=== PATIENT | male | born 1970 | race Caucasian/White ===

== ENCOUNTER 2024-08-12 02:12 | Day surgery (SDC) | payer OTHER, SELFPAY ==
[2024-08-02 10:21] VITALS: BMI 28.5
--- OUTSIDE RECORDS SUMMARY | 2024-08-12 02:20 | XMS_ITS | Data Portability ---
Author Organization [facility] Address [address] [place] [address] Care Team Providers Care Credit Support Counselor Name Role Phone WANDA CARROLL Primary Care Provider Assessment Encounter Date Assessment Date Assessment LastModified by Organization Details LastModified Time 04/29/2024 04/29/2024 CBC CMP lipid PSA. Wellbutrin SR 150 b.i.d.. Smokeless tobacco in 2 weeks after starting losartan 25 mg daily colonoscopy follow up 6 weeks obtain records from the [facility] cardiology group. He is actually seeing his dentist in a week or 2 [email or web address] Not available 04/29/2024 23:00:35 06/10/2024 06/10/2024 continue current therapy obtain colonoscopies follow up in 6 months [email or web address] Not available 07/11/2024 18:21:30 Plan of Treatment Reminders Order Date Submit Date Provider Last Modified By Organization Details Last Modified Time Details Appointments ANY 15 2024 09:30A Cyrus Carroll MD Not available Not available Not available Lab PSA, serum or plasm a 2024 025 [facility], [address] [place], [address], 04/30/2024 11:03:24 lipid panel , serum 2024 025 [facility], [address] [place], [address], 04/30/2024 11:03:23 CMP, serum or plasm a 2024 025 [facility], [address] [place], [address], 04/30/2024 11:03:23 CBC w/ auto diff 2024 025 [email or web address], [address] , [place], [address], 04/30/2024 11:03:23 Referral None recor ded. Procedures colon oscop y scree frida (PROC ) 2024 025 sally Hebert [facility] Gastroenterology Dept, [address] [facility] , [address], [place], [address], 08/11/2024 12:48:40 Surgeries None recor ded. Imaging None recor ded. Medication Orders Wellb utrin SR 150 mg table t, 12 hr susta ined- relea se 2024 025 [id number], [address], [place], [place], [id number], 05/05/2024 11:58:53 losar anderson 25 mg table t 2024 025 [id number], [address], [place], [place], [id number], 05/05/2024 11:58:37 Patient TargetsNo targets recorded. Patient Instructions Encounter Date Encounter Id Patient Instructions Last Modified By Organization Details Last Modified Time 04/29/2024 [id number] A healthy lifestyle: care instructions [email or web address] Not available 04/29/2024 14:40:35 Reason for Referral None Reported. Results Created Date Observation Date Name Description Value Unit Range Abnormal Flag Note LastModifiedBy Organization Detail LastModifiedTime 06/17/1905/14/2024 CT, coron valentino calci um score No observ ation record ed. [facility] [address], [place], [address], 06/16/2024 09:26:31 Result Notes None recorded. Problems Name Problem SNOMED Code Status Onset Date Resolution Date Notes Provider Name and Address Organization Details Recorded Time Essential hypertension 63402209 Active 2024 Mana Mann MA null, [facility] 5 11:27:34 Hyperlipidemia 50434627 Active 2024 Mana Mann MA null, [facility] 5 12:19:57 Body mass index 25-29 - overweight 445352622 Active 2024 Mana Mann MA null, [facility] 5 12:39:06 Problem Notes None recorded. Procedures Surgical History Date Name Laterality Status Provider Name and Address Organization Details Recorded Time Appendectomy completed Wendy Tony MA [facility] 06/10/2024 11:11:11 Imaging Results Imaging Date Name Status [facility] Details LastModified Time 05/14/2024 CT, coronary calcium score completed [facility] [address], [place], [address], 06/16/2024 09:26:31 Procedure Notes None recorded. Medical Equipment None Reported. Allergies No known drug allergies Medications Name Sig Start Date Stop Date Status Note LastModified by Organization Details LastModified Time atorvastatin 10 mg tablet TAKE 1 TABLET BY MOUTH EVERY DAY 2024 active Not Available Not Available Not Avai lable Wellbutrin SR 150 mg tablet, 12 hr sustained-re lease Take 1 tablet(s ) twice a day by oral route. 2024 active Not Available Not Available Not Avai lable tamsulosin 0.4 mg capsule TAKE 1 CAPSULE BY MOUTH EVERY DAY active Not Available Not Available No t Available losartan 25 mg tablet Take 1 tablet every day by oral route. 2024 active Not Available Not Available Not Avai lable levofloxacin 500 mg tablet TAKE 1 TABLET BY MOUTH EVERY DAY 05/12 completed Not Available Not Available Not Available Vitals Date Recorded Body height Body mass index (BMI) Body weight Heart rate Oxygen saturation Oxygen saturation in Arterial blood by Pulse oximetry Systolic blood pressure Diastolic blood pressure Provider Name and Address Organization Details Last Updated DateTime 195.58 cm 29.2 kg/m2 505551. 16 g 72 /min 99 % 99 % 150 mm[Hg] 90 mm[Hg] Ximena Mcginnis [place] - [facility] 5 10:36:31 Date Recorded Body height Body mass index (BMI) Body weight Heart rate Oxygen saturation Oxygen saturation in Arterial blood by Pulse oximetry Systolic blood pressure Diastolic blood pressure Provider Name and Address Organization Details Last Updated DateTime 5 195.58 cm 28.9 kg/m2 093529. 54 g 93 /min 99 % 99 % 138 mm[Hg] 80 mm[Hg] Wendy Tony MA [facility] 5 11:13:31 Social History Question Answer Notes LastModified by Organizat ion Details LastModified Time Tobacco Smoking Status Never Smoker Ximena Mcginnis MA [facility], [facility] 04/29/2024 10:31:51 Do You Have An Advance Directive? Yes Information n ot available 04/29/2024 What Is Your Level Of Alcohol Consumption? None Information not available 06/10/2024 Are You Blind Or Do You Have Difficulty Seeing? No Information n ot available 04/29/2024 What Is Your Level Of Caffeine Consumption? None Information not available 04/29/2024 In The 14 Days Before Symptom Onset, Have You Had Close Contact With A Laboratory-confirm ed COVID-19 While That Case Was Ill? No Information n ot available 04/29/2024 In The 14 Days Before Symptom Onset, Have You Had Close Contact With A Person Who Is Under Investigation For COVID-19 While That Person Was Ill? No Information not available 04/29/2024 Have You Been To An Area Known To Be High Risk For COVID-19? No Information not available 04/29/2024 Are You Currently Employed? Yes Information not available 04/29/2024 Are You Deaf Or Do You Have Serious Difficulty Hearing? No Information not available 04/29/2024 What Type Of Diet Are You Following? 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 No Information not available 04/29/2024 What Was The Date Of Your Most Recent Tobacco Screening? 06/10/2024 Information not available 06/10/2024 What Is Your Relationship Status? Domestic Partner Information not available 04/29/2024 Do You Use Your Seat Belt Or Car Seat Routinely? Yes Information not available 04/29/2024 Do You Have Smoke And Carbon Monoxide Detectors In Your Home? Yes Information not available 04/29/2024 Do You Or Have You Ever Used Smokeless Tobacco? Currently Chews Tobacco Information not available 06/10/2024 Do You Feel Stressed (tense, Restless, Nervous, Or Anxious, Or Unable To Sleep At Night)? EG1401-2 Information not available 04/29/2024 Do You Use Any Illicit Or Recreational Drugs? No Information not available 04/29/2024 Do You Use Sunscreen Routinely? Yes Information not available 04/29/2024 Has Tobacco Cessation Counseling Been Provided? Yes Information not available 06/10/2024 On What Date Was Tobacco Cessation Counseling Provided? 06/10/2024 Information not available 06/10/2024 Do You Or Have You Ever Used Any Other Forms Of Tobacco Or Nicotine? Yes Information not available 06/10/2024 Sex: Male Functional Status Question Answer Note LastModified by Organization D etails LastModified Time Are you able to care for yourself? Yes Information n ot available 04/29/2024 What is your exercise level? None Information not available 04/29/2024 Mental Status None recorded. Family History Relationship Description Onset Age of this Age Resolved Age Notes LastModified by Organization Details LastModified Time Father Harmful pattern of use of alcohol mebyma Not available 2024 10:31:00 Father Cerebrovascu lar disease mebyma Not available 04/14 10:31:09 Father Heart disease mebyma Not available 2024 10:31:17 Father Hypertensive disorder mebyma Not available 2024 10:31:23 Father Hypercholest erolemia mebyma Not available 2024 10:31:27 Father Myocardial infarction mebyma Not available 04/29 10:31:35 Medical History Condition Response Anxiety Disorder Y High Blood Pressure Y High Cholesterol Y Past Encounters Encounter ID Performer Location Encounter Start Date Encounter Closed Date Diagnosis/Indication Diagnosis SNOMED-CT Code Diagnosis ICD10 Code Diagnosis Note [id number] Wanda Carroll MD [facility] [place] [address] [place] [address] 04/29/2024 10:14:33 04/29/2024 11:46:21 Body mass index 25-29 - overweight 888124854 Z68.29 Overweight 068002651 E66 .3 Essential hypertension 74676581 I10 Screening for malignant neoplasm of prostate 097983551 Z12.5 Nicotine dependence 5629 4008 F17.781 [id number] Wanda Carroll MD [facility] [place] [address] [place] [address] 06/10/2024 11:03:23 06/10/2024 12:38:41 Essential hypertension 32597048 I10 Hyperlipidemia 78492640 E78.5 Body mass index 25-29 - overweight 901378515 Z68.28 Screening for malignant neoplasm of colon 951319117 Z12.11 Health Concerns Section Related Observation LastModified by Organization Detai ls LastModified Time None Recorded Concern Status LastModified by Organization Details LastModified Time None Recorded Advance Directives Directive Y: Payers Encounter Date Sequence Insurance Name Policy Number Policy Resendiz Covered Member ID Resendiz Member ID Guarantor Name 04/29/2024 1 [facility]LY [facility] [id number] Juan Mayaa [id number] 1 Juan Kim 06/10/2024 1 [facility]LY [facility] [id number] Juan Chance Papa [id number] Juan Chance Papmadhu Notes Date Note Type Note Provider Name and Address Organization Details Recorded Time 04/29/2024 text/html 54-year-old with a history of hypertension also a I believe atrial septal fistula that has been evaluated him and so he [facility] Department of Cardiology comes in has been doing fine but has been having some high blood pressure readings in all. Medications none allergies none surgeries none family history of hypertension socially denies smoking or illicit drug use does use smokeless tobacco works for [employer] Wanda Carroll MD Attn: Accounting[address] [facility], [place], [address], [facility] 04/29/2024 23:00:55 06/10/2024 text/html hypertension blo od pressure looks good hyperlipidemia he needs to basically watch his diet take the atorvastatin Wanda Carroll MD Attn: [address]ing[address] [facility], [place], [address], [facility] 07/11/2024 18:21:46
[2024-08-12 13:29] VITALS: BP 110/92; PULSE 100; RESP 18; TEMP 36.7; O2SAT 100; BMI 28.2
--- NOTE | 2024-08-12 13:32 | P.PNAN_ITS ---
Anes - Initial Pre Proc Eval Procedure: Operation Date: 08/12/24 14:30 Proposed Procedures p Screening Colonoscopy - Markus Siddiqui MD Date/Time: 08/12/24 13:32 Surgeon: Markus Siddiqui MD Pre Op Diagnosis: Encounter for screening for malignant neoplasm of Patient Data Age: 54 Gender: M Height: 1.96 m Weight: 108 kg Last Vital Signs Temp 36.7 C 08/12/24 13:29 Pulse 100 08/12/24 13:29 Resp 18 08/12/24 13:29 BP 110/92 H 08/12/24 13:29 Pulse Ox 100 08/12/24 13:29 O2 Del Method Room Air 08/12/24 13:29 Allergies Allergy/AdvReac Type Severity Reaction Status Date / Time No Known Allergies Allergy Verified 08/12/24 13:29 Home Medications ?Medication ?Instructions ?Recorded ?Confirmed ?Type atorvastatin 10 mg tablet 10 mg PO QPM 08/02/24 08/12/24 History bupropion HCl 150 mg tablet,12 hr 150 mg PO Q12H 08/02/24 08/12/24 History sustained-release losartan 25 mg tablet 25 mg PO DAILY 08/02/24 08/12/24 History Patient hx anesthesia problems: none Family hx anesthesia problems: none Results Review: All pre-operative results and documents have been reviewed as part of the pre- operative evaluation. COUNT INCLUDES [facility] Past Medical History Medical History (Updated 08/12/24 @ 13:38 by Amish Rosario DO) Hyperlipidemia Hypertension Social History Social History (Updated 08/12/24 @ 13:37 by Amish Rosario DO) Smokeless tobacco user: chewing tobacco Alcohol intake: current Alcohol use details: 6/day Substance use: never Substance use type: does not use Living arrangements: with family Spiritual care concerns: No Anes - Eval Final PreProcedure Day of Procedure 08/12/24 13:32 Patient weight: overweight Heart: regular rate and rhythm Lungs: clear to auscultation Airway: Mallampati scale class II Neurological: alert and oriented Last oral intake: >/= 8 hours ASA classification: III Emergent: no Anesthetic plan: proceed Anesthesia type and monitoring: general GIVS and standard monitoring Results Review: All pre-operative results and documents have been reviewed as part of the pre- operative evaluation. Informed Consent: The patient's anesthetic plan and its attendant risks and benefits were discussed with the patient/family/POA. Questions were solicited and answers provided to the satisfaction of the patient/family/POA.
[2024-08-12] MEDS: LACTATED RINGERS 1,000 ML 150 ML IV CONT (13:37)
--- NOTE | 2024-08-12 14:18 | PM.HPGS ---
History of Present Illness History of Present Illness Consent: Risks, benefits, and alternatives have been discussed and questions answered. Patient agrees to proceed with procedure. Chief complaint: Encounter for screening for malignant neoplasm of Narrative: Juan Kim is a 54 year old male with colon polyp 7 years ago Review of Systems Review of Systems: All systems reviewed & are unremarkable except as noted in HPI and below PMFSH Past Medical History Medical History (Updated 08/12/24 @ 14:19 by Markus Siddiqui MD) Colon polyp Hyperlipidemia Hypertension Social History Social History (Updated 08/12/24 @ 13:37 by Amish Rosario DO) Smokeless tobacco user: chewing tobacco Alcohol intake: current Alcohol use details: 6/day Substance use: never Substance use type: does not use Living arrangements: with family Spiritual care concerns: No Meds Home Medications and Allergies Home Medications ?Medication ?Instructions ?Recorded ?Confirmed ?Type atorvastatin 10 mg tablet 10 mg PO QPM 08/02/24 08/12/24 History bupropion HCl 150 mg tablet,12 hr 150 mg PO Q12H 08/02/24 08/12/24 History sustained-release losartan 25 mg tablet 25 mg PO DAILY 08/02/24 08/12/24 History Allergies Allergy/AdvReac Type Severity Reaction Status Date / Time No Known Allergies Allergy Verified 08/12/24 13:29 Vital Signs Vital Signs - 24 hr 08/12/24 13:29 Temperature 98.1 F Pulse Rate 100 Respiratory Rate 18 Blood Pressure 110/92 H Pulse Oximetry 100 Oxygen Delivery Room Air Exam Const: General: comfortable and no acute distress HENMT: Face/Nose/Sinus: Normal nares present Eyes: General: appearance normal, both eyes and all related structures Neck: Neck: no JVD Resp: Auscultation: clear to auscultation bilaterally Cardio: Rate: regular rate Rhythm: regular rhythm GI: Inspection: non-distended GI Palp: Yes Soft to palpation Skin: General skin exam: normal color Neuro: General: gait normal Speech: normal speech Extrem: General: normal to inspection Psych: Mental Status: mental status grossly normal Assessment and Plan Assessment and plan (1) Colon polyp: Code(s): K63.5 - Polyp of colon Status: Acute Assessment and Plan: colonoscopy
[2024-08-12 14:31] VITALS: BP 111/81; PULSE 95; RESP 16; O2SAT 94
[2024-08-12 14:41] VITALS: BP 115/84; PULSE 82; RESP 18; O2SAT 98
[2024-08-12 14:51] VITALS: BP 124/83; PULSE 72; RESP 16; O2SAT 99
== END 2024-08-12 15:00 | disposition home or self-care (01) ==
PROVIDERS: PCP Internal Medicine; Referring Provider Internal Medicine; Visit Provider Internal Medicine Gastroenterology
PROC: 0DJD8ZZ Inspection of Lower Intestinal Tract, Via Natural or Artificial Opening Endoscopic (ICD-10-PCS; CPT 45378; principal; 2024-08-12 14:30)
DX: Z12.11 Encounter for screening for malignant neoplasm of colon (principal); D12.3 Benign neoplasm of transverse colon; D12.5 Benign neoplasm of sigmoid colon; K64.8 Other hemorrhoids; F17.220 Nicotine dependence, chewing tobacco, uncomplicated
CPT/HCPCS: 45385; 88305; J2003; J2704; J7120